=== PATIENT | male | born 1960 | race African-American/Black ===

== ENCOUNTER 2018-12-03 06:03 | Inpatient (IN) | payer MEDICAID ==
[~2018-12-03] VITALS: Ht 172.7 cm; Wt 53.1 kg
[2018-12-03] MEDS ORDERED: METHYLPREDNISOLONE SOD SUCC 125 MG/2 ML VIAL IV STA (06:08)
[2018-12-03] MEDS ORDERED: IPRATROPIUM/ALBUTEROL 0.5-3(2.5)MG/3ML NEB HHN ONE (06:15)
[2018-12-03 06:30] LABS: BG BASE EXCESS 0.7 mmol/L (-2.0-2.0); BG CARBOXYHEMOGLOBIN 0.3 % (0.5-1.5); BG DEOXYHEMOGLOBIN 15.4 % (0.0-5.0); BG FRACTION INSPIRED OXYGEN 21; BG HCO3 ACT 26.5 mmol/L (22.0-26.0); BG METHEMOGLOBIN 0.3 % (0.0-1.5); BG OXYGEN SATURATION 84.5 % (92.0-98.5); BG PCO2 47.6 mmHg (35.0-45.0); BG PH 7.363 (7.350-7.450); BG PO2 53.5 mmHg (75.0-100.0); BG SAMPLE SITE RIGHT RADIAL; BG VENT MODE ROOM AIR
[2018-12-03 06:42] LABS: BASOPHILS % 0.9 % (0.0-2.0); EOSINOPHILS % 8.5 % (0.0-5.0); HEMATOCRIT. 33.9 % (42.0-52.0); HEMOGLOBIN. 10.2 g/dL (14.0-18.0); LYMPHOCYTES % 15.7 % (20.0-50.0); MEAN CORPUSCULAR HEMOGLOBIN 21.7 pg (28.0-32.0); MEAN CORPUSCULAR VOLUME 72.1 fL (80.0-94.0); MEAN PLATELET VOLUME 8.9 fl (7.4-10.4); MONOCYTES % 9.1 % (2.0-8.0); NEUTROPHILS % 65.8 % (40.0-76.0); PLATELET 192 x1000/uL (130-400); RED CELL DISTRIBUTION WIDTH 19.4 % (11.6-14.6)
[2018-12-03 06:49] LABS: CHLORIDE 109 mEq/L (98-107)
[2018-12-03] MEDS ORDERED: MAGNESIUM 2 G PREMIX 50 ML IV ONE (07:00)
[2018-12-03] MEDS ORDERED: DOXYCYCLINE HYCLATE 100MG CAPSULE PO ONE (07:00)
[2018-12-03] MEDS ORDERED: ACETAMINOPHEN 325MG TABLET PO PRN (09:15)
[2018-12-03] MEDS ORDERED: HYDROCODONE/ACETAMINOPHEN 5/325MG TABLET PO PRN (09:15)
[2018-12-03] MEDS ORDERED: IPRATROPIUM/ALBUTEROL 0.5-3(2.5)MG/3ML NEB INH PRN (09:15)
[2018-12-03] MEDS ORDERED: DOCUSATE SODIUM 100MG CAPSULE PO PRN (09:15)
[2018-12-03] MEDS ORDERED: MAGNESIUM/ALUMINUM HYDROXIDE/SIMETHICONE 30ML UDC PO PRN (09:15)
[2018-12-03] MEDS ORDERED: ENOXAPARIN 40MG/0.4ML SYR SUBCUT SCH (09:15)
[2018-12-03] MEDS ORDERED: ONDANSETRON HCL 4MG/2ML INJ IV PRN (09:15)
[2018-12-03] MEDS ORDERED: GUAIFENESIN 200MG/10ML SUGAR FREE UDC PO PRN (09:15)
[2018-12-03] MEDS ORDERED: CLONIDINE 0.1MG TABLET PO PRN (09:15)
[2018-12-03] MEDS ORDERED: DIPHENHYDRAMINE 50MG/ML VIAL IV PRN (09:15)
[2018-12-03 10:32] LABS: PHOSPHORUS 3.5 mg/dL (2.5-4.9)
[2018-12-03 13:30] VITALS: BP 123/61
[2018-12-03 13:53] VITALS: BP 123/61
[2018-12-03] MEDS ORDERED: ATROV INH (14:42)
[2018-12-03] MEDS: ENOXAPARIN 40MG/0.4ML SYR SUBCUT SCH (15:00)
[2018-12-03 16:00] VITALS: BP 113/63
[2018-12-03] MEDS ORDERED: IPRATROPIUM/ALBUTEROL 0.5-3(2.5)MG/3ML NEB HHN PRN (17:15)
[2018-12-03] MEDS: PREDNISONE 20MG TABLET PO SCH (17:38)
[2018-12-03] MEDS: NICOTINE 21MG PATCH TD SCH (17:39)
[2018-12-03 19:27] LABS: CLARITY URINE CLEAR (CLEAR); COLOR URINE YELLOW (YELLOW); KETONES URINE NEGATIVE (NEGATIVE); LEUKOCYTE ESTERASE URINE NEGATIVE (NEGATIVE); NITRITE URINE NEGATIVE (NEGATIVE); OCCULT BLOOD URINE NEGATIVE (NEGATIVE); PROTEIN URINE NEGATIVE (NEGATIVE); SPECIFIC GRAVITY URINE 1.025 (1.005-1.030); UROBILINOGEN URINE 0.2 E.U./dL (0.2-1.0)
[2018-12-03 19:36] LABS: *AMPHETAMINES SCREEN URINE NEGATIVE (NEGATIVE)
[2018-12-03 19:37] LABS: *BARBITURATES SCREEN URINE NEGATIVE (NEGATIVE); *BENZODIAZEPINES SCREEN URINE NEGATIVE (NEGATIVE); *COCAINE SCREEN URINE PRESUMTIVE POSITIVE (NEGATIVE); METHADONE URINE SCREEN NEGATIVE (NEGATIVE); OPIATES URINE SCREEN NEGATIVE (NEGATIVE); PHENCYCLIDINE URINE SCREEN NEGATIVE (NEGATIVE)
[2018-12-03 19:38] LABS: CANNABINOID URINE SCREEN NEGATIVE (NEGATIVE)
[2018-12-03 20:00] VITALS: BP 121/62
[2018-12-03] MEDS: IPRATROPIUM/ALBUTEROL 0.5-3(2.5)MG/3ML NEB HHN SCH (20:57)
[2018-12-04] VITALS: BP 111/53
[2018-12-04] MEDS: IPRATROPIUM/ALBUTEROL 0.5-3(2.5)MG/3ML NEB HHN SCH ×4 (01:35→19:58)
[2018-12-04 04:00] VITALS: BP 106/63
[2018-12-04 08:01] LABS: HEMATOCRIT. 27.3 % (42.0-52.0); HEMOGLOBIN. 8.4 g/dL (14.0-18.0); MEAN CORPUSCULAR HEMOGLOBIN 21.8 pg (28.0-32.0); MEAN CORPUSCULAR VOLUME 71.2 fL (80.0-94.0); MEAN PLATELET VOLUME 8.9 fl (7.4-10.4); PLATELET 185 x1000/uL (130-400); RED BLOOD CELL COUNT 3.84 mill/uL (4.7-6.1)
[2018-12-04 08:23] LABS: CHLORIDE 107 mEq/L (98-107)
[2018-12-04 08:35] LABS: LDL CHOLESTEROL 57 mg/dL (5-100)
[2018-12-04 08:36] LABS: HDL CHOLESTEROL 75 mg/dL (40-59)
[2018-12-04] MEDS: PREDNISONE 20MG TABLET PO SCH ×2 (09:21→17:47)
[2018-12-04] MEDS: NICOTINE 21MG PATCH TD SCH (09:21)
[2018-12-04 12:00] VITALS: BP 110/64
[2018-12-04 13:59] LABS: PLATELET ESTIMATE NORMAL
[2018-12-04 14:20] LABS: TOTAL IRON BINDING CAPACITY 396 ug/dL (250-450)
[2018-12-04] MEDS: ENOXAPARIN 40MG/0.4ML SYR SUBCUT SCH (14:39)
[2018-12-04 16:00] VITALS: BP 133/57
[2018-12-04 20:00] VITALS: BP 112/61
[2018-12-05] VITALS: BP 108/50
[2018-12-05] MEDS: IPRATROPIUM/ALBUTEROL 0.5-3(2.5)MG/3ML NEB HHN SCH ×2 (02:10→08:35)
[2018-12-05 04:00] VITALS: BP 110/58
[2018-12-05 06:11] LABS: HEMATOCRIT. 28.2 % (42.0-52.0); HEMOGLOBIN. 8.6 g/dL (14.0-18.0); MEAN CORPUSCULAR HEMOGLOBIN 21.5 pg (28.0-32.0); MEAN CORPUSCULAR VOLUME 70.6 fL (80.0-94.0); MEAN PLATELET VOLUME 8.9 fl (7.4-10.4); PLATELET 205 x1000/uL (130-400); RED BLOOD CELL COUNT 3.99 mill/uL (4.7-6.1); RED CELL DISTRIBUTION WIDTH 19.1 % (11.6-14.6)
[2018-12-05 06:40] LABS: CHLORIDE 104 mEq/L (98-107)
[2018-12-05 08:00] VITALS: BP 112/66
[2018-12-05] MEDS: NICOTINE 21MG PATCH TD SCH (10:14)
[2018-12-05] MEDS: PREDNISONE 20MG TABLET PO SCH (10:14)
[2018-12-05 10:55] LABS: PLATELET ESTIMATE NORMAL
[2018-12-05 12:00] VITALS: BP 113/65
[2018-12-05 14:17] VITALS: BP 112/66
== END 2018-12-05 14:40 | disposition home or self-care (01) | DRG 816 ==
LOC: ER 06:03 → 8WST 07:55 → EDBEDREQ 08:01 → EDBEDREQSVC 08:01 → ENRESERV 12:41
PROVIDERS: ADMIT Internal Medicine; ATTEND Internal Medicine
DX: T40.5X1A Poisoning by cocaine, accidental (unintentional), initial encounter (principal); J96.01 Acute respiratory failure with hypoxia; D72.1 Eosinophilia; E87.0 Hyperosmolality and hypernatremia; E87.2 Acidosis; J68.0 Bronchitis and pneumonitis due to chemicals, gases, fumes and vapors; D50.9 Iron deficiency anemia, unspecified; D72.819 Decreased white blood cell count, unspecified; F17.210 Nicotine dependence, cigarettes, uncomplicated; I10 Essential (primary) hypertension; Z88.8 Allergy status to other drugs, medicaments and biological substances; Y92.89 Other specified places as the place of occurrence of the external cause
CPT/HCPCS: 36415; 36600; 71045; 80048; 80061; 80305; 82375; 82728; 82805; 83540; 83550; 83735; 84100; 84443; 84484; 93970; 94640; 96365; 96375; 97161; 97165; 99285; J1650; J2930; J3475; J7512; J7620